=== PATIENT | male | born 2000 | race African-American/Black ===

== ENCOUNTER 2019-11-23 04:29 | Emergency (ER) | payer MEDICAID ==
[~2019-11-23] VITALS: Ht 165.1 cm; Wt 73.0 kg
[2019-11-23] MEDS ORDERED: KETAMINE HCL 50 MG/ML 10ML IV ONE (06:15)
[2019-11-23] MEDS ORDERED: MORPHINE SULFATE 4 MG/ML CPJ (NOT FOR IM USE) IV ONE (06:15)
[2019-11-23] MEDS ORDERED: ONDANSETRON HCL 4MG/2ML INJ IV ONE (06:15)
[2019-11-23] MEDS ORDERED: PROPOFOL 200MG/20ML VIAL IV PRN (06:15)
[2019-11-23 07:34] VITALS: BP 153/91
== END 2019-11-23 07:47 | disposition home or self-care (01) ==
LOC: ER 04:42
DX: M24.411 Recurrent dislocation, right shoulder (principal); F17.200 Nicotine dependence, unspecified, uncomplicated
CPT/HCPCS: 23650; 73030; 93005; 96374; 96375; 99152; 99285; J2270; J2405; J2704; J3490